=== PATIENT | female | born 1980 | race American Indian/Alaskan Native ===

== ENCOUNTER 2016-08-20 10:24 | Emergency (ER) | payer SELFPAY ==
[2016-08-20 12:10] LABS: Anion Gap 19 mmol/L; BUN/Creatinine Ratio 14.28; Basophils % (Auto) 1.4 % (0.0-1.8); Blood Urea Nitrogen 10 mg/dL (7-17); Calcium 8.6 mg/dL (8.4-10.2); Carbon Dioxide 21 mmol/L (22-30); Chloride 106.1 mmol/L (98-107); Glucose 103 mg/dL (65-100); Hematocrit 37.7 % (30.3-42.9); Hemoglobin 12.5 gm/dl (10.1-14.3); Mean Corpuscular HGB Conc 33 % (30-34); Mean Corpuscular Hemoglobin 31 pg (28-32); Mean Corpuscular Volume 92 fl (79-97); Platelet Count 238 K/mm3 (140-440); Potassium 4.3 mmol/L (3.6-5.0); Red Blood Count 4.08 M/mm3 (3.65-5.03); Red Cell Distribution Width 13.6 % (13.2-15.2); Sodium 142 mmol/L (137-145); White Blood Count 7.8 K/mm3 (4.5-11.0)
[2016-08-20 13:58] LABS: Bilirubin,Urine NEG (Negative); Blood,Urine LG (Negative); Ketones,Urine NEG (Negative); Leukocyte Esterase,Urine TR (Negative); Mucus,Urine FEW /HPF; Nitrite,Urine NEG (Negative); Protein,Urine <15 mg/dL mg/dL (Negative); Urobilinogen,Urine < 2.0 mg/dL (<2.0)
[2016-08-20 14:26] VITALS: BP 113/72
--- NOTE | 2016-08-22 22:01 | ED Elopement Review ---
ED Pt Elopement review - Results review Lab results: Laboratory Tests 08/20/16 08/20/16 08/20/16 11:20 11:20 11:20 WBC 7.8 RBC 4.08 Hgb 12.5 Hct 37.7 MCV 92 MCH 31 MCHC 33 RDW 13.6 Plt Count 238 Lymph % (Auto) 23.6 [place] % (Auto) 4.6 Eos % (Auto) 3.0 Baso % (Auto) 1.4 Lymph # 1.8 [place] # 0.4 Eos # 0.2 Baso # 0.1 Seg Neutrophils % 67.4 Seg Neutrophils # 5.2 Sodium 142 Potassium 4.3 Chloride 106.1 Carbon Dioxide 21 L Anion Gap 19 BUN 10 Creatinine 0.7 Estimated GFR > 60 BUN/Creatinine Ratio 14.28 Glucose 103 H Calcium 8.6 HCG, Quant < 2 Urine Color Urine Turbidity Urine pH Ur Specific [place] Urine Protein Urine Glucose (UA) Urine Ketones Urine Blood Urine Nitrite Urine Bilirubin Urine Urobilinogen Ur Leukocyte Esterase Urine WBC (Auto) Urine RBC (Auto) U Epithel Cells (Auto) Urine Mucus Blood Type Antibody Screen PHI Antibody Screen 08/20/16 08/20/16 11:28 13:41 WBC RBC Hgb Hct MCV MCH MCHC RDW Plt Count Lymph % (Auto) [place] % (Auto) Eos % (Auto) Baso % (Auto) Lymph # [place] # Eos # Baso # Seg Neutrophils % Seg Neutrophils # Sodium Potassium Chloride Carbon Dioxide Anion Gap BUN Creatinine Estimated GFR BUN/Creatinine Ratio Glucose Calcium HCG, Quant Urine Color Yellow Urine Turbidity Clear Urine pH 6.0 Ur Specific [place] 1.011 Urine Protein <15 mg/dl Urine Glucose (UA) Neg Urine Ketones Neg Urine Blood Lg Urine Nitrite Neg Urine Bilirubin Neg Urine Urobilinogen < 2.0 Ur Leukocyte Esterase Tr Urine WBC (Auto) 1.0 Urine RBC (Auto) 3.0 U Epithel Cells (Auto) < 1.0 Urine Mucus Few Blood Type A POSITIVE Antibody Screen TNR PHI Antibody Screen Negative - Call Back decision Pt Call Back Decision: Pt to F/U with PMD
== END 2016-08-20 14:25 | disposition left against medical advice (07) ==
LOC: ED 10:24
DX: N93.9 Abnormal uterine and vaginal bleeding, unspecified (principal); R10.9 Unspecified abdominal pain; H53.8 Other visual disturbances; F17.200 Nicotine dependence, unspecified, uncomplicated; Z53.21 Procedure and treatment not carried out due to patient leaving prior to being seen by health care provider
CPT/HCPCS: 36415; 80048; 81001; 84702; 85025; 86850; 86900; 86901

== ENCOUNTER 2017-04-09 08:37 | Emergency (ER) | payer SELFPAY ==
[2017-04-09 09:16] VITALS: BP 118/68
[2017-04-09] MEDS ORDERED: PROVENTIL IH ONE ×2 (09:51→09:52)
[2017-04-09] MEDS ORDERED: DELTASONE PO ONE (09:52)
[2017-04-09] MEDS ORDERED: TYLENOL PO ONE (09:52)
--- NOTE | 2017-04-09 10:40 | XRay Report ---
ROUTINE CHEST, TWO VIEWS: HISTORY: Short of breath. The trachea, heart, mediastinal contour, lung ramsey and bony thorax are unremarkable. IMPRESSION: Unremarkable chest x-ray.
--- NOTE | 2017-04-09 12:02 | Emergency Department Report ---
Minor Respiratory - HPI Chief Complaint: Upper Respiratory Infection Stated Complaint: FLU LIKE SYMPTOMS Time Seen by Provider: 04/09/17 11:50 Duration: 2 Days Pain Location: Facial, Throat Severity: mild Minor Respiratory: Yes Rhinorrhea, Yes Sore Throat (dictation states she feels as though her throat is swollen and enlarged), Yes Able to Tolerate Fluids, Yes Cough (mild dry cough), Yes Shortness of Breath, No Ear Pain, No Sick Contacts, No Hemoptysis, No Chest Pain, No Fever ED Review of Systems ROS: Stated complaint: FLU LIKE SYMPTOMS Other details as noted in HPI Comment: All other systems reviewed and negative ED Past Medical Hx - Past Medical History Previous Medical History?: No Additional medical history: low blood sugar - Surgical History Past Surgical History?: No - Social History Smoking Status: Never Smoker Substance Use Type: None - Medications Home Medications: Home Medications Medication Instructions Recorded Confirmed Last Taken Type Ibuprofen [Motrin] 400 mg PO Q8H PRN #60 tablet 01/10/15 Unknown Rx traMADol [Ultram] 50 mg PO Q6HR PRN #14 tablet 01/10/15 Unknown Rx Amoxicillin/Potassium Clav 1 each PO TID #21 tablet 04/09/17 Unknown Rx [Augmentin 875-125 Tablet] Fluticasone Furoate [Flonase 9.1 ml NS DAILY #1 spray.susp 04/09/17 Unknown Rx Sensimist] traMADol [Ultram] 50 mg PO Q6HR PRN #12 tablet 04/09/17 Unknown Rx Minor Respiratory Exam - Exam General: Vital signs noted. No distress. Alert and acting appropriately. HEENT: Yes Pharyngeal Erythema, Yes Moist Mucous Membranes, Yes Frontal Tenderness, No Pharyngeal Exudates, No Rhinorrhea, No Conjuctival Injection, No Maxillary Tenderness Ear: Neither TM Bulge, Neither TM Erythema, Neither EAC Pain, Neither EAC Discharge Neck: Yes Supple, No Adenopathy Lungs: Yes Good Air Exchange, No Wheezes, No Ronchi, No Stridor, No Cough, No Labored Respirations, No Retractions, No Use of Accessory Muscles, No Other Abnormal Lung Sounds Heart: Yes Regular, No Murmur Abdomen: Yes Normal Bowel Sounds, No Tenderness, No Peritoneal Signs Skin: No Rash, No Edema Neurologic: Alert and oriented, no deficits. Musculoskeletal: Unremarkable. ED Course Vital Signs 04/09/17 04/09/17 04/09/17 09:14 09:53 10:15 Temperature 98.8 F Pulse Rate 100 H Pulse Rate [ 82 88 Anterior Throughout] Respiratory 20 Rate Respiratory 18 18 Rate [Anterior Throughout] Blood Pressure 118/68 O2 Sat by Pulse 100 Oximetry ED Medical Decision Making - Radiology Data Radiology results: report reviewed No acute process - Medical Decision Making The patient has upper respiratory type symptoms with probable sinusitis will be treated with symptomatic relief and Augmentin Critical care attestation.: If time is entered above; I have spent that time in minutes in the direct care of this critically ill patient, excluding procedure time. ED Disposition Clinical Impression: Upper respiratory infection Qualifiers: URI type: unspecified URI Qualified Code(s): J06.9 - Acute upper respiratory infection, unspecified Acute sinusitis Qualifiers: Sinusitis location: other Recurrence: not specified as recurrent Qualified Code (s): J01.80 - Other acute sinusitis Disposition: DC- TO HOME OR SELFCARE Is pt being admited?: No Does the pt Need Aspirin: No Condition: Stable Instructions: Upper Respiratory Infection (ED), Sinusitis (ED) Prescriptions: Amoxicillin/Potassium Clav [Augmentin 875-125 Tablet] 1 each PO TID #21 tablet Fluticasone Furoate [Flonase Sensimist] 9.1 ml NS DAILY #1 spray.susp traMADol [Ultram] 50 mg PO Q6HR PRN #12 tablet PRN Reason: Pain Referrals: PRIMARY CARE,MD [Primary Care Provider] - 3-5 Days
== END 2017-04-09 12:12 | disposition home or self-care (01) ==
LOC: ED 08:37
DX: J01.80 Other acute sinusitis (principal)
CPT/HCPCS: 71046; 87116; 87430; 94640; 99284; J7512

== ENCOUNTER 2018-03-03 07:54 | Emergency (ER) | payer OTHER ==
[2018-03-03 08:07] VITALS: BP 118/55
[2018-03-03] MEDS ORDERED: ULTRAM PO ONE (08:41)
--- NOTE | 2018-03-03 08:45 | Emergency Department Report ---
ED General Adult HPI - General Chief complaint: Extremity Injury, Lower Stated complaint: TENSION/NUMB (R) LEG Time Seen by Provider: 03/03/18 08:37 Source: patient Mode of arrival: Ambulatory Limitations: No Limitations - History of Present Illness Initial comments: Ms. Alejandra is a 37 yo female with right foot pain for the past 2 weeks. No hx of trauma. Wears loafers at work. 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 Pain is that the medial portion of the sole radiates to mid-right lower leg. Gradual onset of pain. Worse in the morning. -: Gradual Location: right, lower extremity Severity scale (0 -10): 6 Quality: aching Consistency: constant Worsens with: movement Associated Symptoms: denies other symptoms - Related Data Previous Rx's Medication Instructions Recorded Last Taken Type Ibuprofen [Motrin] 400 mg PO Q8H PRN #60 tablet 01/10/15 Unknown Rx traMADol [Ultram] 50 mg PO Q6HR PRN #14 tablet 01/10/15 Unknown Rx Amoxicillin/Potassium Clav 1 each PO TID #21 tablet 04/09/17 Unknown Rx [Augmentin 875-125 Tablet] Fluticasone Furoate [Flonase 9.1 ml NS DAILY #1 spray.susp 04/09/17 Unknown Rx Sensimist] traMADol [Ultram] 50 mg PO Q6HR PRN #12 tablet 04/09/17 Unknown Rx Ibuprofen [Motrin] 800 mg PO Q8HR PRN #14 tablet 12/29/17 Unknown Rx medroxyPROGESTERone ACETATE 10 mg PO DAILY #5 tablet 12/29/17 Unknown Rx [Provera] traMADol [Ultram] 50 mg PO Q6HR PRN #12 tablet 12/29/17 Unknown Rx Ibuprofen 400 mg PO QID 5 Days #20 tablet 03/03/18 Unknown Rx Allergies Allergy/AdvReac Type Severity Reaction Status Date / Time No Known Allergies Allergy Verified 12/29/17 12:28 ED Review of Systems ROS: Stated complaint: TENSION/NUMB (R) LEG Other details as noted in HPI Constitutional: denies: fever, malaise Respiratory: denies: cough Cardiovascular: denies: chest pain Gastrointestinal: denies: abdominal pain, nausea Neurological: denies: weakness, numbness, confusion ED Past Medical Hx - Past Medical History Previous Medical History?: Yes Additional medical history: low blood sugar, uterine fibroids - Surgical History Past Surgical History?: No - Social History Smoking Status: Current Every Day Smoker Substance Use Type: None - Medications Home Medications: Home Medications Medication Instructions Recorded Confirmed Last Taken Type Ibuprofen [Motrin] 400 mg PO Q8H PRN #60 tablet 01/10/15 Unknown Rx traMADol [Ultram] 50 mg PO Q6HR PRN #14 tablet 01/10/15 Unknown Rx Amoxicillin/Potassium Clav 1 each PO TID #21 tablet 04/09/17 Unknown Rx [Augmentin 875-125 Tablet] Fluticasone Furoate [Flonase 9.1 ml NS DAILY #1 spray.susp 04/09/17 Unknown Rx Sensimist] traMADol [Ultram] 50 mg PO Q6HR PRN #12 tablet 04/09/17 Unknown Rx Ibuprofen [Motrin] 800 mg PO Q8HR PRN #14 tablet 12/29/17 Unknown Rx medroxyPROGESTERone ACETATE 10 mg PO DAILY #5 tablet 12/29/17 Unknown Rx [Provera] traMADol [Ultram] 50 mg PO Q6HR PRN #12 tablet 12/29/17 Unknown Rx Ibuprofen 400 mg PO QID 5 Days #20 tablet 03/03/18 Unknown Rx ED Physical Exam - General Limitations: No Limitations General appearance: alert, in no apparent distress - Neck Neck exam: Present: normal inspection - Respiratory Respiratory exam: Absent: respiratory distress - Extremities Exam Extremities exam: Present: normal inspection, full ROM, normal capillary refill, other (2+ DP pulse flesh colored). Absent: tenderness, pedal edema, joint swelling, calf tenderness - Neurological Exam Neurological exam: Present: alert, oriented X3 - Psychiatric Psychiatric exam: Present: normal affect, normal mood - Skin Skin exam: Present: warm, dry, intact, normal color ED Course Vital Signs 03/03/18 08:03 Temperature 97.6 F Pulse Rate 109 H Respiratory 16 Rate Blood Pressure 118/55 O2 Sat by Pulse 99 Oximetry ED Medical Decision Making - Medical Decision Making Ms. Alejandra is a 37 yo female who presents with 2 weeks of right foot pain DDx: Plantar fasciitis, foot strain, foot pain due to poor fitting shoes. I recommended shoes with support and cushion. Recommended calf stretches. Prescribed ibuprofen. Referred to orthopedic surgeon. No indication of fracture or cellulitis. No indication of DVT. No indication of vascular compromise. Critical care attestation.: If time is entered above; I have spent that time in minutes in the direct care of this critically ill patient, excluding procedure time. ED Disposition Clinical Impression: Right foot strain Disposition: DC-01 TO HOME OR SELFCARE Is pt being admited?: No Does the pt Need Aspirin: No Condition: Stable Instructions: Plantar Fasciitis (ED) Prescriptions: Ibuprofen 400 mg PO QID 5 Days #20 tablet Referrals: JANA YORK MD [Staff Physician] - 3-5 Days Forms: Work/School Release Form
== END 2018-03-03 08:58 | disposition home or self-care (01) ==
LOC: ED 07:54
DX: S96.911A Strain of unspecified muscle and tendon at ankle and foot level, right foot, initial encounter (principal); F17.200 Nicotine dependence, unspecified, uncomplicated; Z87.42 Personal history of other diseases of the female genital tract; E16.2 Hypoglycemia, unspecified; X58.XXXA Exposure to other specified factors, initial encounter; Y93.89 Activity, other specified; Y92.89 Other specified places as the place of occurrence of the external cause; Y99.8 Other external cause status
CPT/HCPCS: 99282